=== PATIENT | male | born 1970 | race Caucasian/White ===

== ENCOUNTER 2016-11-09 14:41 | Inpatient (IN) | payer OTHER, MEDICAID ==
[~2016-11-09] VITALS: Ht 160 cm; Wt 63.5 kg
[2016-11-09 14:43] VITALS: BP 140/80
--- NOTE | 2016-11-09 14:44 | NUR ---
PT PLACED IN BED 1 BY EMS.
[2016-11-09 14:50] VITALS: BP 145/93
--- NOTE | 2016-11-09 14:50 | NUR ---
BIBA FOR SOB AND ABD DISTENTION FROM [facility]. PATIENT PRESENTS TO ED ON A VENT BY [facility], PLACED ON VENT BY PRINCIPLE SOFTWARE ENGINEER ON THE FOLLOWING SETTINGS ORGERED AC/VC RR 12, VT 400 CC, FI02 50%, PEEP +5, SUCTIONED VIA TRACH MODERATE AMOUNT OF WHITE THICK FOAMY SECRETIONS VIA INLINE SUCTION CATHETER; SKIN IS PINK/WARM/DRY; LUNGS BL UPPER EXPIRATORY WHEEZE WITH DIMINISHED BL LOWER LOBES; HR EVEN AND REGULAR; PT NONVERBAL HAS A TRACH, NO NOTICEABLE PAIN DISCOMFORT; VSS; PATIENT POSITIONED FOR COMFORT; HOB ELEVATED; BEDRAILS UP X2; BED DOWN. ER MD MADE AWARE OF PT STATUS.
--- NOTE | 2016-11-09 14:50 | NUR ---
PT BROUGHT TO ED FOR SOB ON VENT, PLACED PT ON CARESCAPE VENT SETTINGS AC12 VT 400 PEEP 5 FIO2 50% ALARMS ON AND FUNCTIONING PROPERLY, AMBU BAG AT SIDE OF VENTILATOR AND VENTILATOR IS PLUGGED INTO RED OUTLET, SXN PT FOR C&S MODERATE AMT OF THIN PINK SECRETIONS B\S ARE RHONCHI BILATERALLY, PT IS TRACH WITH PORTEX 7 AND SKIN INTEGRITY IS INTACT
[2016-11-09] MEDS ORDERED: CARDIZEM GT (14:55)
[2016-11-09] MEDS ORDERED: REGLAN1 MG/ML GT (14:55)
[2016-11-09] MEDS ORDERED: FOLIC ACID800 MCG GT (14:55)
[2016-11-09] MEDS ORDERED: PROBIOTIC1 EACH GT (14:55)
[2016-11-09] MEDS ORDERED: SIMETHICONE GT (14:55)
[2016-11-09] MEDS ORDERED: ROBINUL1 MG GT (14:55)
--- NOTE | 2016-11-09 15:19 | NUR ---
Patient being evaluated by physician at bedside.
--- NOTE | 2016-11-09 15:35 | NUR ---
X-Ray at bedside.
--- NOTE | 2016-11-09 15:52 | NUR ---
VENTILATED PT OFF THE UNIT VENTILATED WITH AMBU BAG BY MARIAJOSE, ACCOMPANIED BY BENIGNO ESPANA, AND COMPUTER CLERK VIA SRINIVASA.
--- NOTE | 2016-11-09 16:18 | NUR ---
ABG RESULTS REPORTED TO DR GALINDO DECREASE FIO2 TO 28
--- NOTE | 2016-11-09 17:05 | NUR ---
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 VSS.ALL MONITORS PLACED IN. SAFETY PRECAUTION INSTITUTED.WILL CONTINUE TO MONITOR PT.
[2016-11-09 17:06] VITALS: BP 142/94
--- NOTE | 2016-11-09 17:06 | NUR ---
VENT CHECK, NO SXN REQUIRED AT THIS TIME, AIRWAY IS PATENT AND PT IS RESTING
--- NOTE | 2016-11-09 17:21 | NUR ---
PT COUGHING, HIGH PRESSURE VENT ALARM, PT HYPER OXYGENATED, INLINE SUCTION THROUGH TRACH MODERATE YELLOW SECRETION. CURRENT VENT SETTINGS AC MODE, RATE 12, VT 400CC, FIO2 28%,PEEP +5, O2 SAT 99% POST SUCTION.PT RESRING COMFORTABLY.NO ACUTE RESPIRATORY DISTRESS NOTED. WILL CONTINUE TO MONITOR PT.
[2016-11-09] MEDS ORDERED: AZITHROMYCIN 500 MG in DEXTROSE 5% 250 ML IV ONE (17:25)
[2016-11-09] MEDS ORDERED: cefTRIAXone 1,000 MG VIAL ONE (17:30)
[2016-11-09] MEDS ORDERED: AZITHROMYCIN 500 MG INJ VIAL IV ONE (17:31)
--- NOTE | 2016-11-09 18:00 | NUR ---
HYPEROXYGENATED, USING STERILE TECHNIQUE SUCTIONED THROUGH TRACH VIA INLINE SUCTION MODERATE AMOUNT OF THICK YELLOW SECRETIONS, MODERATE AMOUNT OF WHITE FOAMY SECRETIONS ORALLY. VSS, O2 SAT REMAINS 98% WITH 28%FIO2.
[2016-11-09] MEDS ORDERED: ALBUTEROL SULFATE/IPRATROPIU 3 ML SOL IH PRN (18:25)
[2016-11-09] MEDS ORDERED: ALBUTEROL 0.083% 2.5 MG/3 ML NEBU INH PRN ×2 (18:25)
[2016-11-09] MEDS ORDERED: HYDROcodone/APAP 5/325 MG 1 TAB TAB PO PRN (18:25)
[2016-11-09] MEDS ORDERED: ONDANSETRON 4 MG/2 ML VIAL IVP PRN (18:25)
[2016-11-09] MEDS ORDERED: ACETAMINOPHEN 325 MG TAB PO PRN (18:25)
--- NOTE | 2016-11-09 18:45 | NUR ---
ATTEMPTED TO CALL TELE FOR REPORT, UNABLE TO ACCEPT REPORT AT THIS TIME, WILL CALL BACK LATER
[2016-11-09] MEDS ORDERED: ALBUTEROL 0.083% 2.5 MG/3 ML NEBU INH SCH ×2 (19:00)
--- NOTE | 2016-11-09 19:25 | NUR ---
REPORT GIVEN TO BENIGNO NEWSOME
[2016-11-09] MEDS: NACL 0.9% 1,000 ML IV SCH (19:30)
--- NOTE | 2016-11-09 19:30 | NUR ---
REPORT GIVEN TO BENIGNO HERNDON
--- NOTE | 2016-11-09 19:45 | NUR ---
Patient will be admitted to care of DR HENDRICKSON. Admited to TELE. Will go to room 109B. Belongings list completed. Report to BENIGNO NEWSOME.
[2016-11-09 19:50] VITALS: BP 133/94
--- NOTE | 2016-11-09 19:50 | NUR ---
PATIENT TRANSFERRED FROM ER VIA GURNEY. PATIENT IS A 46-YEAR-OLD, MALE, DIAGNOSIS: PNEUMONIA, ABDOMINAL DISTENTION, AND BL HYDRONEPHROSIS. INITIAL ASSESSMENT AND BODY CHECK DONE. PATIENT IS NON-VERBAL, [id number], IV ACCESS TO RIGHT ARM 20G AND LEFT HAND 22G, BOTH PORTS PATENT. REDNESS TO SACRAL/BUTTOCKS AREA, ABDOMEN DISTENDED. G-TUBE IN PLACE. PATIENT ON VENT SETTING AC, RR 12, FIO2 28%, TV 400, AND PEEP 5. PATIENT TOLERATING WELL. DISCUSSED PLAN OF CARE, MEDICATION REGIMENT, AND PAIN MANAGEMENT WITH PATIENT. PLACED PATIENT ON SAFETY/FALL/PRESSURE ULCER/ASPIRATION/SEIZURE PRECAUTIONS. CALL LIGHT LEFT WITHIN REACH, WILL CONTINUE TO MONITOR.
[2016-11-09] MEDS: ALBUTEROL SULFATE/IPRATROPIU 3 ML SOL IH SCH (20:41)
[2016-11-09] MEDS: BUDESONIDE 0.5 MG/2 ML NEBU INH SCH (20:45)
--- NOTE | 2016-11-09 22:05 | NUR ---
PATIENT IN BED, RESTING. EASILY AROUSABLE TO LIGHT PAIN, OPENS EYES SPONTANEOUSLY. PATIENT TOLERATING SAME VENT SETTINGS WELL. NO RESPIRATORY DISTRESS, SOB, OR DISCOMFORT. CALL LIGHT LEFT WITHIN REACH, WILL CONTINUE TO MONITOR.
[2016-11-10] VITALS: BP 139/91
--- NOTE | 2016-11-10 | NUR ---
ORAL CARE DONE AT THIS TIME, AND INLINE SUCTIONING DONE TO TRACH. MINIMAL AMOUNT OF THICK WHITE TO GREENISH SPUTUM SUCTIONED. PATIENT TOLERATED ORAL CARE WELL. CALL LIGHT LEFT WITHIN REACH, WILL CONTINUE TO MONITOR.
[2016-11-10] MEDS: ALBUTEROL SULFATE/IPRATROPIU 3 ML SOL IH SCH ×5 (00:10→19:28)
[2016-11-10] MEDS ORDERED: PIPERACILLIN/TAZOBACTAM 2.25 GM VIAL IV ONE ×2 (00:20→05:05)
[2016-11-10] MEDS: PIPERACILLIN/TAZOBACTAM 2.25 GM in DEXTROSE 5% 50 ML IV SCH ×2 (00:24→05:09)
--- NOTE | 2016-11-10 00:55 | NUR ---
PATIENT IN BED, SLEEPING. NO RESPIRATORY DISTRESS, SOB, OR DISCOMFORT. CALL LIGHT LEFT WITHIN REACH, WILL CONTINUE TO MONITOR.
[2016-11-10] MEDS: HYDRAGUARD CREAM TP SCH ×3 (01:15→23:44)
--- NOTE | 2016-11-10 03:02 | NUR ---
PATIENT ASLEEP. EASILY AROUSABLE TO LIGHT PAIN. NO RESPIRATORY DISTRESS, SOB, OR DISCOMFORT. NO INDICATIONS FOR IN-LINE SUCTIONING AT THIS TIME. CALL LIGHT LEFT WITHIN REACH, WILL CONTINUE TO MONITOR.
[2016-11-10 04:00] VITALS: BP 137/89
--- NOTE | 2016-11-10 04:04 | NUR ---
ORAL CARE PROVIDED TO PATIENT AT THIS TIME, NO INDICATIONS FOR IN LINE SUCTIONING. PATIENT TOLERATED WELL. CALL LIGHT LEFT WITHIN REACH, WILL CONTINUE TO MONITOR.
--- NOTE | 2016-11-10 04:56 | NUR ---
PT ASLEEP, SX MOD YELLOW THICK SECRETION, CHANGED HME, NO CHANGES IN VENT SETTINGS OR PT STATUS..
--- NOTE | 2016-11-10 06:05 | NUR ---
PATIENT IN BED, RESTING. EYES SPONTANEOUSLY OPEN, IN LINE SUCTION DONE AT THIS TIME. MODERATE THICK YELLOW SECRETIONS. NO RESPIRATORY DISTRESS, SOB, OR DISCOMFORT. CALL LIGHT LEFT WITHIN REACH, WILL CONTINUE TO MONITOR.
[2016-11-10] MEDS: NACL 0.9% 1,000 ML IV SCH ×2 (06:54→16:45)
[2016-11-10] MEDS: BUDESONIDE 0.5 MG/2 ML NEBU INH SCH ×2 (06:56→19:28)
--- NOTE | 2016-11-10 07:07 | NUR ---
REPORT GIVEN TO DAY NURSE, VICTOR MANUEL (ORIENTEE). PATIENT RESTING IN BED, STABLE. NO RESPIRATORY DISTRESS, SOB, OR DISCOMFORT. ALL NEEDS ATTENDED TO DURING SHIFT, CALL LIGHT LEFT WITHIN REACH.
--- NOTE | 2016-11-10 07:10 | NUR ---
RECEIVED PT FROM TENZIN Castillo RN AWAKE AND LYING ON BED. INITIAL ASSESSMENT DONE. PT NON VERBAL, WITH TRACH TO VENT, IV ACCESS TO RIGHT ARM 20G INFUSING FLUIDS WELL, AND LEFT HAND 22G PATENT AND INTACT. ABDOMINAL DISTENTION NOTED, WITH GTUBE INTACT. REDNESS NOTED AROUND GTUBE AREA. VENT SETTING AC, RR 12, FIO2 28%, TV 400, AND PEEP 5, TOLERATED WELL. NO S/S OF RESPIRATORY DISTRESS OR DISCOMFORT. SAFETY, FALL, SEIZURE, ASPIRATION PRECAUTIONS ENFORCED. CALL LIGHT WITHIN REACH, WILL CONTINUE TO MONITOR.
[2016-11-10 08:00] VITALS: BP 133/94
--- NOTE | 2016-11-10 08:37 | NUR ---
RECIVED PT ON VENT WITH SETTINGS CHARTED BREATH SOUNDS PRESENT BILAT WITH EXP WHEEZES SXN PT WITH MIN AMT OFF WHITE SECS
--- NOTE | 2016-11-10 08:57 | NUR ---
PATIENT HAS BEEN SCREENED AND CATEGORIZED HIGH NUTRITION RISK. PATIENT WILL BE SEEN WITHIN 1-2 DAYS OF ADMISSION. 11/10/16-11/11/[address]
[2016-11-10] MEDS ORDERED: DOCUSATE SODIUM 100 MG GELCAP PO SCH (09:00)
--- NOTE | 2016-11-10 09:09 | NUR ---
CONTACTED PT LACQUER SPRAY BOOTH OPERATOR ELSY BRADY AT [phone] AND LEFT A MESSAGE TO CALL BACK AT [phone]
[2016-11-10] MEDS ORDERED: ACETAMINOPHEN 325 MG TAB GT PRN (09:31)
[2016-11-10] MEDS ORDERED: DOCUSATE 100 MG/10 ML UDC GT SCH (10:00)
[2016-11-10] MEDS ORDERED: SODIUM PHOSPHATE 118 ML ENEM RC SCH (10:00)
[2016-11-10] MEDS ORDERED: NACL 0.9% 500 ML IV SCH (10:15)
--- NOTE | 2016-11-10 10:40 | NUR ---
INFANTE CATHETER INSERTED USING ASEPTIC TECHNIQUE, DRAINED 600ML OF CLEAR, YELLOW URINE. FLEET ENEMA AND DUE MEDS GIVEN, PT TOLERATED WELL. KEPT CLEAN AND DRY. WILL CONTINUE TO MONITOR.
--- NOTE | 2016-11-10 11:00 | NUR ---
WOUND CARE EVALUATION NOTES: REASON FOR EVALUATION: LOW ELBA, SACRAL REDNESS COMPLETE SKIN ASSESSMENT DONE ON THIS 44 Y/O MALE FROM [facility] TO [facility] WITH INITIAL DIAGNOSIS OF PNA, ABDOMINAL DISTENSION AND BILATERAL HYDRONEPHROSIS. PAST MEDICAL HISTORY INCLUDE SEIZURES, MRCP, ANEMIA, DYSPHAGIA, CHRONIC RESPIRATORY FAILURE, AND CEREBRAL PALSY. ALL ABOVE INFORMATION WAS OBTAINED FROM THE ADMISSION H&P. LABS ARE WBC 12.6, H/H 8.4/26.0, GLUCOSE 87, ALBUMIN 2.2. CURRENT MEDS INCLUDE TYLENOL, NORCO, ZOSYN, AND ROCEPHIN. PATIENT IS AWAKE, EYES OPEN, UNABLE TO RESPOND TO NAME. HAS TRACH TO VENT. G-TUBE TO LUQ, REDNESS TO INSERTION SITE. HAS INFANTE TO CLEAR YELLOW URINE IN MODERATE AMOUNT. SKIN WARM TO TOUCH HAS SCARRING TO THE LOWER BACK AND LEFT ABDOMINAL. TOENAILS NORMAL. EDEMA TO BUE AND BLE PITTING +2. FEW HAIR GROWTH AND +2 BILATERAL PEDAL PULSES. BUE AND BLE CONTRACTED. NEEDS MAX ASSISTANCE IN TURNING. INCONTINENT TO BOWEL AND URINE. INITIAL PLAN OF CARE AND PRESSURE PREVENTIVE MEASURES DISCUSSED, UNABLE TO VERBALIZE UNDERSTANDING. WILL REINFORCE TEACHING. INTEGUMENTARY: LUQ - G TUBE SITE - 100% PINK, PW WHITE MACERATION SACRALCOCCYX TO PERIAREA - BLANCHABLE REDNESS AND MOIST RECOMMENDATIONS: -CLEANSE G TUBE SITE WITH MILD SOAP AND WATER, PAT DRY, PAINT WITH SKIN PREP WIPES, COVER WITH CLEAN GAUZE. -SACRALCOCCYX TO PERIAREA: CLEANSE WITH MILD SOAP AND WATER, PAT DRY, APPLY HYDRAGUARD BIDWC AND PRN WITH SOILING. LEAVE OPEN TO AIR -TURN AND REPOSITION PATIENT Q2H TO LEFT AND RIGHT SIDE ONLY TO OFFLOAD SACRALCOCCYX -OFFLOAD BILATERAL HEELS BY PLACING PILLOWS UNDER CALVES AT ALL TIMES, UNLESS OTHERWISE CONTRAINDICATED. -KEEP SKIN CLEAN AND DRY AT ALL TIMES. RECOMMENDATIONS DISCUSSED WITH PRIMARY RN WILL FOLLOW UP PATIENT Q 7 DAYS AND PRN. PLEASE CONTACT C FOR ANY CONCERNS, QUESTIONS AND CHANGES IN WOUND CONDITION.
[2016-11-10] MEDS ORDERED: ACETAMINOPHEN 650 MG/20.3 ML UDC GT PRN (11:15)
[2016-11-10 12:00] VITALS: BP 142/94
--- NOTE | 2016-11-10 12:00 | NUR ---
PT LYING ON BED AWAKE, NO S/S OF RESPIRATORY DISTRESS OR DISCOMFORT. DUE MEDS GIVEN, TOLERATED WELL. KEPT CLEAN AND DRY. WILL CONTINUE TO MONITOR.
[2016-11-10] MEDS: SIMETHICONE 40 MG/0.6 ML GT SCH ×3 (12:10→21:15)
[2016-11-10] MEDS: DILTIAZEM 300 MG GT SCH ×3 (12:10→23:44)
[2016-11-10] MEDS: PIPER/TAZO 2.25GM/D5W PREMIX 50 ML IV SCH ×2 (12:11→21:15)
--- NOTE | 2016-11-10 12:27 | NUR ---
11/10/16 RD INITIAL ASSESSMENT COMPLETED PLEASE REFER TO NUTRITION ASSESSMENT UNDER CARE ACTIVITY FOR ESTIMATED NUTRITIONAL NEEDS. RD RECOMMENDATIONS: 1. CONTINUE NPO MEDICALLY APPROPRIATE 2. WHEN APPROPRIATE CONSIDER TUBE FEEDING NUTREN PULMONARY AT 50 ML/HR --THIS WILL PROVIDE 1200 ML TOTAL VOLUME, 1800 KCAL, 82 GM PROTEIN TO MEET 100% OF ESTIMATED KCAL AND PROTEIN NEEDS 3. PT WITH INCREASED KCAL AND PROTEIN NEEDS D/T RESPIRATORY FAILURE, VENT 4. RD WILL F/U 2-3 DAYS; HIGH RISK. ОЛЕГ PANDEY RD
--- NOTE | 2016-11-10 14:00 | NUR ---
PT ASLEEP LYING ON BED BUT EASILY AWAKEN, NO S/S OF RESPIRATORY DISTRESS. KEPT CLEAN AND DRY, TURNED AND REPOSITIONED. ALL NEEDS MET AT THIS TIME. CALL LIGHT WITHIN REACH, WILL CONTINUE TO MONITOR.
[2016-11-10 16:00] VITALS: BP 151/93
--- NOTE | 2016-11-10 17:10 | NUR ---
CONTINUED TO MONITOR PT ON VENT WITH SETTINGS CHARTED SXN PT WITH MIN AMT OFF WHITE SECS BREATH SOUNDS PRESENT BILAT WITH COARSE BREATH SOUNDS VENT PLUGGE INTO RED OUTLET AMBU BAG AT BEDSIDE TRACH CARE DONE
--- NOTE | 2016-11-10 17:15 | NUR ---
DUE MED GIVEN, PT TOLERATED WELL. NO S/S OF DISTRESS, KEPT CLEAN AND DRY. CALL LIGHT WITHIN REACH, WILL CONTINUE TO MONITOR.
--- NOTE | 2016-11-10 19:38 | NUR ---
ENDORSED PT TO CHARGE NURSE, TORRIE PELAEZ. PT IS STABLE AT THIS TIME.
[2016-11-10 20:00] VITALS: BP 138/92
--- NOTE | 2016-11-10 20:15 | NUR ---
RECEIVED REPORT FROM CHARGE NURSE, JANETH, FOR CONTINUITY OF CARE. PATIENT RESTING IN BED. PATIENT ON [id number]; AC 12, FIO2 21%, TV 400, AND PEEP 5. NO RESPIRATORY DISTRESS, SOB, OR DISCOMFORT. INITIAL ASSESSMENT AND BODY CHECK DONE. PATIENT IS NON-VERBAL, APHASIC, IV ACCESS TO RIGHT ARM 20G AND LEFT HAND 22G, BOTH PORTS PATENT. PATIENT HAS REDNESS TO SACRAL/BUTTOCKS AREA AND GT SITE. G-TUBE IN PLACE, F/C IN PLACE DRAINING CLEAR YELLOW. DISCUSSED PLAN OF CARE, MEDICATION REGIMENT, AND PAIN MANAGEMENT WITH PATIENT. PLACED PATIENT ON SAFETY/FALL/PRESSURE ULCER/SEIZURE/ASPIRATION PRECAUTIONS. CALL LIGHT LEFT WITHIN REACH, WILL CONTINUE TO MONITOR.
[2016-11-10] MEDS: LACTULOSE 20 GM/30 ML UDC GT SCH (21:15)
[2016-11-10] MEDS: METOCLOPRAMIDE 10 MG/10 ML SYRP UDC GT SCH (21:16)
[2016-11-10] MEDS: SACCHAROMYCES 250 MG CAP PO SCH (21:16)
--- NOTE | 2016-11-10 21:30 | NUR ---
ORAL CARE PROVIDED TO PATIENT. PATIENT TOLERATED WELL. IN-LINE SUCTIONING OF THICK CREAMY SECRETIONS. CALL LIGHT LEFT WITHIN REACH, WILL CONTINUE TO MONITOR.
--- NOTE | 2016-11-10 22:03 | NUR ---
PATIENT IN BED, RESTING. EYES SPONTANEOUSLY OPEN. NO INDICATIONS FOR IN-LINE SUCTIONING AT THIS TIME. CALL LIGHT LEFT WITHIN REACH, WILL CONTINUE TO MONITOR.
[2016-11-11] VITALS: BP 133/86
--- NOTE | 2016-11-11 00:16 | NUR ---
PATIENT PROVIDED WITH ORAL CARE. PATIENT TOLERATED WELL. NO INDICATIONS FOR IN-LINE SUCTIONING AT THIS TIME. WILL CONTINUE TO MONITOR.
[2016-11-11] MEDS: NACL 0.9% 1,000 ML IV SCH ×4 (00:20→20:44)
--- NOTE | 2016-11-11 00:54 | NUR ---
PATIENT IN BED, SLEEPING. NO RESPIRATORY DISTRESS, SOB, OR DISCOMFORT. CALL LIGHT LEFT WITHIN REACH, WILL CONTINUE TO MONITOR.
[2016-11-11] MEDS: ALBUTEROL SULFATE/IPRATROPIU 3 ML SOL IH SCH ×4 (01:22→19:12)
--- NOTE | 2016-11-11 03:08 | NUR ---
PATIENT ASLEEP. NO INDICATIONS OF IN-LINE SUCTIONING AT THIS TIME. CALL LIGHT LEFT WITHIN REACH, WILL CONTINUE TO MONITOR.
[2016-11-11 04:00] VITALS: BP 134/81
--- NOTE | 2016-11-11 04:10 | NUR ---
ORAL CARE PROVIDED TO PATIENT ALONG WITH IN-LINE SUCTIONING OF THICK CREAMY WHITE SECRETIONS. PATIENT TOLERATED WELL. CALL LIGHT LEFT WITHIN REACH, WILL CONTINUE TO MONITOR.
[2016-11-11] MEDS: PIPER/TAZO 2.25GM/D5W PREMIX 50 ML IV SCH ×2 (05:18→12:29)
[2016-11-11] MEDS: DILTIAZEM 300 MG GT SCH ×4 (05:18→23:47)
--- NOTE | 2016-11-11 06:01 | NUR ---
PATIENT SLEEPING. NO RESPIRATORY DISTRESS, SOB, OR DISCOMFORT. CALL LIGHT LEFT WITHIN REACH, WILL CONTINUE TO MONITOR.
--- NOTE | 2016-11-11 07:09 | NUR ---
REPORT GIVEN TO DAY NURSE, MAXIM. PATIENT RESTING IN BED, STABLE. NO RESPIRATORY DISTRESS, SOB, OR DISCOMFORT. ALL NEEDS ATTENDED TO DURING SHIFT, CALL LIGHT LEFT WITHIN REACH.
--- NOTE | 2016-11-11 07:30 | NUR ---
REPORT RECEIVED AT BEDSIDE FROM TENZIN MOTLEY RN . PATIENT IN BED, AWAKE , NON VERBAL , ABLE TO OPEN HIS EYES . NO S/SX OF PAIN , NO RESP/DISTRESS NOTED. WITH 02 VIA TRACH CONNECTED TO VENT. WITH IV FLUIDS INFUSING WELL. HAS GT , CLAMPED , RESIDUAL 100 . HAS REDNESS AROUND GT SITE. WITH INFANTE CATH DRAINING WELL YELLOW CLOUDY . PATIENT HAS CONTRACTED UPPER/LOWER EXTREMITIES . NO S/SX OF SEIZURES NOTED.WILL CONTINUE MONITORING .
[2016-11-11 08:00] VITALS: BP 149/100
[2016-11-11] MEDS: BUDESONIDE 0.5 MG/2 ML NEBU INH SCH ×2 (08:15→19:12)
--- NOTE | 2016-11-11 08:23 | NUR ---
RECEIVED TRACH PT ON VENT WITH PORTEX 7 TRACH. VENT SETTINGS AC 12, VT 400, PEEP 5 AND FIO2 21%. PT SUCTIONED OBTAINED MODERATE AMOUNT OF THICK YELLOW SECRETIONS. AIRWAY IS PATENT, TRACH SECURE. PT NOT SOB AND NOT IN RESPIRATORY DISTRESS AT THIS TIME. VENT ALARMS ARE ON AND FUNCTIONING, VENT IS PLUGGED INTO RED OUTLET. AMBU BAG IS PRESENT AT BEDSIDE. WILL CONTINUE TO MONITOR.
--- NOTE | 2016-11-11 08:40 | NUR ---
MADE AWARE OF PEAK PRESSURES. NO CHANGES REQUESTED AT THIS TIME.
--- NOTE | 2016-11-11 08:42 | NUR ---
DR ZAMUDIO CAME TO SEE HIM , ORDERS GIVEN.
--- NOTE | 2016-11-11 08:50 | NUR ---
INTERMITTENT SUCTION CONNECTED TO GT , SOME DRAINAGE NOTED , DARK GREEN COLOR . ABDOMEN DISTENDED .
[2016-11-11] MEDS: LACTULOSE 20 GM/30 ML UDC GT SCH ×2 (09:44→20:42)
[2016-11-11] MEDS: DOCUSATE 100 MG/10 ML UDC GT SCH (09:44)
[2016-11-11] MEDS: SACCHAROMYCES 250 MG CAP PO SCH ×2 (09:44→20:43)
[2016-11-11] MEDS: METOCLOPRAMIDE 10 MG/10 ML SYRP UDC GT SCH (09:44)
--- NOTE | 2016-11-11 09:53 | NUR ---
PT SUCTIONED OBTAINED SMALL AMOUNT OF THICK YELLOW SECRETIONS. AIRWAY IS PATENT, TRACH SECURE. PT NOT SOB NOT IN RESPIRATORY DISTRESS . WILL CONTINUE TO MONITOR.
[2016-11-11] MEDS: SIMETHICONE 40 MG/0.6 ML GT SCH ×4 (10:14→20:42)
[2016-11-11 12:00] VITALS: BP 141/89
--- NOTE | 2016-11-11 13:22 | NUR ---
FIO2 INCREASED TO 24% DUE TO DESATURATION. PT SUCTIONED OBTAINED SMALL AMOUNT OF THICK PALE YELLOW SECRETIONS,AIRWAY IS PATENT. TRACH SECURE. WILL CONTINUE TO MONITOR.
[2016-11-11] MEDS: HYDRAGUARD CREAM TP SCH (14:00)
[2016-11-11] MEDS ORDERED: MORPHINE SULFATE 2 MG/ML SYR IVP PRN ×2 (15:40→19:40)
[2016-11-11 16:00] VITALS: BP 143/83
--- NOTE | 2016-11-11 16:42 | NUR ---
1540 CALL PLACED TO [facility] AT [phone] AND SPOKE WITH GALDINO WHO STATED THAT THEY ARE ON SATURATION AT THIS TIME AND NOT TAKING ANY REFERRALS. CALL PLACED TO [facility] AT [phone] AND PER VOICE MESSAGE INFORMATION FAXED TO [phone] AND PER VOICE MESSAGE INFORMATION WILL BE REVIEWED. 1600 CALL PLACED TO [facility] [phone] AND SPOKE WITH [employer]GG GILMANGLAZIER [employer] FURNITURE WHO STATED THEY ARE SATURATED AND NO ICU BEDS AVAILABLE.
--- NOTE | 2016-11-11 16:56 | NUR ---
PT REMAINS ON DOCUMENTED SETTINGS. PT IS NOT SOB AND NOT IN RESPIRATORY DISTRESS AT THIS TIME. VENT ALARMS REMAIN ON AND FUNCTIONING.
--- NOTE | 2016-11-11 18:00 | NUR ---
Reason For Evaluation: <Transfer to higher level care of care> Comments: <Patient requires transfer to higher level of care as patient has a, calcified left obstructed ureteral stent with large right obstructing, ureteral stones in the setting of bilateral hydronephrosis and sepsis., Patient requires tertiary care center and possibly complex percutaneous, approaches for treatment of his bilateral renal stones. In addition, our, radiologist states patient requires an interventional radiology suite, (with rotatin fluoroscopic arm) with anaesthethia consult due to, difficulty positioning patient for bilateral nephrostomy tube placement as, patient is contracted in all extremities with high respiratory pressures, 2/[address] Hernandez, Urologist and Dr. Sewell,, Radiologist both recommend transfer to higher level of care.>.CUSTOMS CONSULTANT WORKING IN FIND PLACE TO TRANSFER. LARA BROWNLEE/CUSTOMS CONSULTANT CALL US AND MADE QUESTIONS ABOUT PATIENT CONDITION.
--- NOTE | 2016-11-11 18:38 | NUR ---
ABDOMINAL US IN PROGRESS.
--- NOTE | 2016-11-11 19:13 | NUR ---
PT RECEIVED FROM [facility] ON NOTED VENT SETTINGS. PT AWAKE, HAS A #7 PORTEX TR[address] SECURE IN PLACE. BS DIMINISHED/COARSE, HHN TX GIVEN INLINE. PT LAVAGED AND SUCTIONED SMALL AMT THICK CREAMY SECRETIONS. NO ADVERSE EFFECTS NOTED. VENT ALARMS ON AND AUDIBLE. VENT PLUGGED INTO RED ELECTRICAL OUTLET. AMBU BAG AT [facility].
[2016-11-11] MEDS ORDERED: METOCLOPRAMIDE 10 MG/2 ML INJ VIAL IVP PRN (19:25)
--- NOTE | 2016-11-11 19:30 | NUR ---
REPORT GIVEN AT BEDSIDE TO BENIGNO DODSON FOR CONTINUITY OF CARE. PATIENT IN STABLE CONDITION , RT AT BEDSIDE .
--- NOTE | 2016-11-11 19:30 | NUR ---
RECEIVED REPORT FROM MAXIM RN AT BEDSIDE. PT IS APHASIC. ONLY OPEN HIS EYES. INITIAL ASSESSMENT DONE. NO S/S OF RESPIRATORY DISTRESS OR SOB NOTED. ON TRACH TO VENT. PT HAS G-TUBE BUT FEEDING IS ON HOLD EXCEPT MEDS. ATTACHED TO INTERMITTENT SUCTION. PLACEMENT AND PATENCY ARE CONFIRMED. ON INFANTE CATHETER BY GRAVITY. PLAN OF CARE REVIEWED TO PT BUT UNABLE TO COMPREHEND. CALL LIGHT WITHIN REACH. WILL CONTINUE TO MONITOR.
[2016-11-11] MEDS ORDERED: MAG SULF 2000 MG/WATER PREMIX 100 ML IV SCH (19:40)
[2016-11-11 20:00] VITALS: BP 145/81
[2016-11-11] MEDS ORDERED: cefTRIAXone 1,000 MG VIAL ONE (20:23)
--- NOTE | 2016-11-11 21:39 | NUR ---
VENT CHECKED. ECHOCARDIOGRAPH TECH IN WITH PT. NO DISTRESS NOTED.
--- NOTE | 2016-11-11 23:48 | NUR ---
VENT CHECKED. PT AWAKE. NO DISTRESS NOTED. PT SUCTIONED SM AMT THICK CREAMY SECRETIONS. NO ADVERSE EFFECTS NOTED.
[2016-11-12] VITALS: BP 138/79
--- NOTE | 2016-11-12 00:10 | NUR ---
PT IS SLEEPING RIGHT NOW BUT AROUSABLE TO SLIGHT PAIN. NO S/S OF ANY DISCOMFORT AT THIS TIME. ALL NEEDS ARE ATTENDED. CALL LIGHT WITHIN REACH. WILL CONTINUE TO MONITOR.
--- NOTE | 2016-11-12 00:20 | NUR ---
PT IS SLEEPING RIGHT NOW BUT EASILY AROUSABLE. NO S/S OF ANY DISCOMFORT AT THIS TIME. ALL NEEDS ARE ATTENDED. CALL LIGHT WITHIN REACH. WILL CONTINUE TO MONITOR. Addendum: 11/12/16 at 0048 by Waqas Sherman RN WRONG PATIENT
[2016-11-12] MEDS: ALBUTEROL SULFATE/IPRATROPIU 3 ML SOL IH SCH ×4 (02:08→19:04)
--- NOTE | 2016-11-12 02:08 | NUR ---
VENT CHECKED. PT ASLEEP, BREATH SOUNDS COARSE BILATERALLY,HHN TX GIVEN INLINE. PT LAVAGED AND SUCTIONED SM AMT THICK PALE YELLOW SECRETIONS. NO ADVERSE EFFECTS NOTED.
[2016-11-12] MEDS: HYDRAGUARD CREAM TP SCH ×2 (02:37→12:24)
--- NOTE | 2016-11-12 03:49 | NUR ---
VENT CHECKED. HME AND TRACH GAUZE CHANGED. NO ADVERSE EFFECTS NOTED.
[2016-11-12 04:00] VITALS: BP 139/85
--- NOTE | 2016-11-12 04:00 | NUR ---
SPOKE TO NATA COLES FROM [facility] AND HE SAID THAT THEY'RE STILL EVALUATING THE PATIENT. INFORMED EDITH CHARGE NURSE. WILL CONTINUE TO MONITOR.
--- NOTE | 2016-11-12 05:00 | NUR ---
AM CARE RENDERED. BED LINEN CHANGED. REPOSITIONED PATIENT. KEPT CLEAN AND DRY. CALL LIGHT WITHIN REACH. WILL CONTINUE TO MONITOR.
[2016-11-12] MEDS: DILTIAZEM 300 MG GT SCH ×4 (05:41→23:18)
--- NOTE | 2016-11-12 05:46 | NUR ---
VENT CHECKED. PT ASLEEP, NO DISTRESS NOTED. PT LAVAGED AND SUCTIONED SM THICK PALE YELLOW SECRETIONS. NO ADVERSE EFFECTS NOTED.
[2016-11-12] MEDS: NACL 0.9% 1,000 ML IV SCH (06:00)
--- NOTE | 2016-11-12 06:48 | NUR ---
RECEIVED PT ON CARESCAPE ON A/C 12 VT 400 PEEP 5 FIO2 24 ALARMS ARE ON AND FUNCTIONAL BMV HOB PTS TRACH PORTEX 7 IS SECURE PTI NHF QUIET BS INSP WHEEZING I\L LAVAGE AND SX SM CREAMY I\L HHN GIVEN WITH 3 MG DUONEB FOLLOWED BY 0.5 MG PULMICORT VENT PLUGGED INTO RED OUTLET CONT. POX IN PLACE AT BEDSIDE
[2016-11-12] MEDS: BUDESONIDE 0.5 MG/2 ML NEBU INH SCH ×2 (07:05→19:04)
--- NOTE | 2016-11-12 07:27 | NUR ---
PT HAS NO S/S OF ANY DISCOMFORT. PLAN OF CARE ENDORSED TO OLGA RN AT BEDSIDE FOR CONTINUITY OF CARE.
--- NOTE | 2016-11-12 07:30 | NUR ---
RECEIVED REPORT FROM IVORY PELAEZ FOR CONTINUITY OF CARE. PATIENT , AWAKE OPEN HIS EYES NON-VERBAL , ON VENT NO S/S OF RESP DISTRESS NOTED . NO DISCOMFORT NOTED. BILATERAL UPPER AND LOWER EXTREMITIES CONTRACTED ,ABDOMEN DISTENDED G-TUBE INTERMITTENT SUCTION . F/C DRAIN CLEAR YELLOW URINE. IV SITE RT ARM GAUGE 20 INTACT AND PATENT , IVF INFUSING WELL. PLAN OF CARE DISCUSSED WITH THE PATIENT , VITALS STABLE WILL CONTINUE TO MONITOR.
[2016-11-12 08:04] VITALS: BP 130/79
--- NOTE | 2016-11-12 08:12 | NUR ---
VENT CHECK BS COARSE I\L LAVAGE AND SX SM CREAMY INCREASE PF TO 35
--- NOTE | 2016-11-12 09:00 | NUR ---
DUE MEDS GIVEN THROUGH G-TUBE , NO RESIDUAL ,TOLERATED WELL , MORNING CARE GIVEN AND REPOSITIONED.
[2016-11-12] MEDS: LACTULOSE 20 GM/30 ML UDC GT SCH ×2 (09:16→20:09)
[2016-11-12] MEDS: SACCHAROMYCES 250 MG CAP PO SCH (09:16)
[2016-11-12] MEDS: DOCUSATE 100 MG/10 ML UDC GT SCH (09:16)
[2016-11-12] MEDS: SIMETHICONE 40 MG/0.6 ML GT SCH ×4 (09:18→20:10)
--- NOTE | 2016-11-12 09:50 | NUR ---
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
[2016-11-12] MEDS: NACL 0.45% 1,000 ML IV SCH ×2 (10:11→19:56)
[2016-11-12] MEDS ORDERED: AMIKACIN PER PHARMACY MC PRN (10:20)
--- NOTE | 2016-11-12 11:10 | NUR ---
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
[2016-11-12 11:57] VITALS: BP 143/83
[2016-11-12] MEDS: AMIKACIN 500 MG in DEXTROSE 5% 100 ML IV SCH (12:23)
[2016-11-12] MEDS: NYSTATIN CRE 100 MU/GM 15 GM TUBE TP SCH ×2 (12:24→17:30)
--- NOTE | 2016-11-12 12:25 | NUR ---
DUE MEDS GIVEN THROUGH G-TUBE TOLERATED WELL . REPOSITIONED , NO BM YET . ABDOMEN DISTENDED , NO DISCOMFORT NOTED AT THIS TIME.
--- NOTE | 2016-11-12 13:31 | NUR ---
VENT CHECK BS COARSE I\L LAVAGE AND SX SM CREAMY I\L HHN GIVEN WITH 3 MG DUONEB
--- NOTE | 2016-11-12 14:00 | NUR ---
REPOSITIONED, PERINEAL CARE GIVEN NO BM , ABDOMEN DISTENDED G-TUBE TO LOW INTERM SUCTION ONLY 20 ML LIGHT GREENISH OUT PUT
--- NOTE | 2016-11-12 14:59 | NUR ---
VENT CHECK BS COARSE I\L LAVAGE AND SX SM CREAMY
[2016-11-12] MEDS ORDERED: METOCLOPRAMIDE 10 MG/2 ML INJ VIAL IVP ONE (15:10)
[2016-11-12] MEDS ORDERED: METOCLOPRAMIDE 10 MG/2 ML INJ VIAL IVP SCH (15:26)
--- NOTE | 2016-11-12 15:47 | NUR ---
11/12/16 RD FOLLOW UP COMPLETED PLEASE REFER TO NUTRITION PROGRESS NOTE UNDER CARE ACTIVITY FOR ESTIMATED NUTRITION NEEDS. RD RECOMMENDATIONS: 1. CONTINUE NPO MEDICALLY APPROPRIATE PER MD. 2. IF PT IS MEDICALLY APPROPRIATE TO BEING NUTRITION, CONSIDER NUTRITION SUPPORT BELOW. --CONSIDER NUTREN PULMONARY AT STARTING AT 10 ML/HR, INCREASE 10 ML Q12 ML/HR TOLERATED TO GOAL RATE OF 50 ML/HR. THIS WILL PROVIDE 1200 ML TOTAL VOLUME, 1800 KCAL, 82 GM PROTEIN TO MEET 100% OF PT ESTIMATED KCAL AND PROTEIN NEEDS. --NOTE PT PT WITH INCREASED KCAL AND PROTEIN NEEDS D/T RESPIRATORY FAILURE, VENT --IF TUBE FEEDING IS NOT MEDICALLY APPROPRIATE, CONSIDER TPN. IF SO, PLEASE CONSULT RD FOR RECOMMENDATIONS. 3. RD WILL F/U 2-3 DAYS; HIGH RISK. LEV FUCHS RD
--- NOTE | 2016-11-12 16:00 | NUR ---
REPOSITIONED , NO DISTRESS NOTED VITALS STABLE AT THIS TIME.
[2016-11-12 16:11] VITALS: BP 146/90
--- NOTE | 2016-11-12 16:56 | NUR ---
VENT CHECK BS COARSE I\L LAVAGE AND SX SM CREAMY CHANGE TRACH TIE GAUZE WITHOUT INCIDENT
--- NOTE | 2016-11-12 18:22 | NUR ---
SAFETY MAINTAINED , REPOSITIONED , RELAXED NO DISCOMFORT NOTED STABLE CONDITION AT THIS TIME.
--- NOTE | 2016-11-12 19:04 | NUR ---
PT RECEIVED FROM [facility] ON NOTED VENT SETTINGS. PT ASLEEP, HAS A #7 PORTEX TRACH SECURE IN PLACE. BS COARSE BILATERALLY, HHN INLINE TX GIVEN. PT LAVAGED AND SUCTIONED SMALL AMOUNT THICK CREAMY SECRETIONS. NO ADVERSE EFFECTS NOTED. VENT ALARMS ON AND AUDIBLE. VENT PLUGGED INTO RED ELECTRICAL OUTLET, AMBU BAG AT [facility].
--- NOTE | 2016-11-12 19:30 | NUR ---
RECEIVED REPORT FROM OLGA PELAEZ AT BEDSIDE. PT IS APHASIC. ONLY OPEN HIS EYES. INITIAL ASSESSMENT DONE. NO S/S OF RESPIRATORY DISTRESS OR SOB NOTED. ON TRACH TO VENT. PT HAS G-TUBE BUT FEEDING STILL ON HOLD EXCEPT MEDS. ATTACHED TO INTERMITTENT SUCTION. PLACEMENT AND PATENCY ARE CONFIRMED. ON INFANTE CATHETER BY GRAVITY. PLAN OF CARE REVIEWED TO PT BUT UNABLE TO COMPREHEND. CALL LIGHT WITHIN REACH. WILL CONTINUE TO MONITOR.
[2016-11-12 20:00] VITALS: BP 135/83
[2016-11-12] MEDS: SACCHAROMYCES 250 MG CAP GT SCH (20:09)
[2016-11-12] MEDS: METOCLOPRAMIDE 10 MG/10 ML SYRP UDC GT SCH (20:11)
--- NOTE | 2016-11-12 21:20 | NUR ---
VENT CHECKED. NO DISTRESS NOTED.
--- NOTE | 2016-11-12 23:17 | NUR ---
VENT CHECKED. PT LAVAGED AND SUCTIONED SMALL AMT THICK CREAMY SECRETIONS. NO ADVERSE EFFECTS NOTED.
[2016-11-13] VITALS: BP 131/78
[2016-11-13] MEDS: ALBUTEROL SULFATE/IPRATROPIU 3 ML SOL IH SCH ×4 (00:45→18:55)
--- NOTE | 2016-11-13 00:45 | NUR ---
VENT CHECKED. BREATH SOUNDS COARSE BILATERALLY, HHN INLINE TX GIVEN. PT SUCTIONED SMALL AMT THICK SECRETIONS. NO ADVERSE EFFECTS NOTED.
[2016-11-13] MEDS: HYDRAGUARD CREAM TP SCH ×2 (01:26→12:38)
--- NOTE | 2016-11-13 03:20 | NUR ---
VENT CHECKED. HME AND TRACH GAUZE CHANGED. NO ADVERSE EFFECTS NOTED.
[2016-11-13 04:00] VITALS: BP 129/85
--- NOTE | 2016-11-13 05:00 | NUR ---
AM CARE RENDERED. BED LINEN CHANGED. REPOSITIONED PATIENT. KEPT CLEAN AND DRY. CALL LIGHT WITHIN REACH. WILL CONTINUE TO MONITOR.
[2016-11-13] MEDS: DILTIAZEM 300 MG GT SCH ×4 (05:13→23:46)
[2016-11-13] MEDS: NACL 0.45% 1,000 ML IV SCH ×2 (05:14→16:27)
--- NOTE | 2016-11-13 05:49 | NUR ---
VENT CHECKED. PT LAVAGED AND SUCTIONED SM AMT CREAMY SECRETIONS. NO ADVERSE EFFECTS NOTED.
--- NOTE | 2016-11-13 07:25 | NUR ---
PT HAS NO S/S OF ANY DISCOMFORT. PLAN OF CARE ENDORSED TO KWABENA PELAEZ AT BEDSIDE FOR CONTINUITY OF CARE.
--- NOTE | 2016-11-13 07:26 | NUR ---
RECEIVED REPORT FROM NIGHT RN. PT RESTING IN BED. PT IS NONVERBAL. NO S/S OF ACUTE DISTRESS. FLACC-0. G-TUBE PATENT AND INTACT. IV SITES PATENT AND INTACT. INFANTE CATHETER PATENT AND INTACT. PT IS TRACH TO VENT. HOB ELEVATED. CALL LIGHT WITHIN REACH. WILL CONTINUE TO MONITOR.
--- NOTE | 2016-11-13 07:36 | NUR ---
RECEIVED PT ON [place] ON A/C 12 VT 400 PEE 5 FIO2 24 ALARMS ARE ON AND FINCTIONAL BMV HOB PTS TRACH PORTEX 8 IS SECURE PT IN HF QUIET BS INSP WHEEZE I\L LAVAGE AND SX SM CREAMY I\L HHN GIVEN WITH 3 MG DUONEB FOLLOWED BY 0.5 MG PULMICORT HHN I\L VENT PLUGGED INTO RED OUTLET Addendum: 11/13/16 at 0801 by Suri Weiss RT PORTEX 7
[2016-11-13] MEDS: BUDESONIDE 0.5 MG/2 ML NEBU INH SCH ×2 (07:45→18:55)
[2016-11-13 08:00] VITALS: BP 140/91
[2016-11-13] MEDS ORDERED: LORazepam 2 MG/ML VIAL IVP PRN (08:00)
--- NOTE | 2016-11-13 09:10 | NUR ---
VENT CHECK BS DIMINISHED
[2016-11-13] MEDS: LACTULOSE 20 GM/30 ML UDC GT SCH ×2 (09:41→21:26)
[2016-11-13] MEDS: SACCHAROMYCES 250 MG CAP GT SCH ×2 (09:42→21:27)
[2016-11-13] MEDS: DOCUSATE 100 MG/10 ML UDC GT SCH (09:42)
[2016-11-13] MEDS: METOCLOPRAMIDE 10 MG/10 ML SYRP UDC GT SCH ×2 (09:42→21:30)
[2016-11-13] MEDS: NYSTATIN CRE 100 MU/GM 15 GM TUBE TP SCH ×3 (09:43→16:36)
[2016-11-13] MEDS: SIMETHICONE 40 MG/0.6 ML GT SCH ×4 (09:43→21:49)
--- NOTE | 2016-11-13 09:43 | NUR ---
DR. GURROLA AT BEDSIDE. NO S/S OF ACUTE DISTRESS. FLACC-0. WILL FOLLOW UP WITH PLAN OF CARE.
--- NOTE | 2016-11-13 10:27 | NUR ---
PT RESTING IN BED. NO S/S OF ACUTE DISTRESS. FLACC-0. CALL LIGHT WITHIN REACH. WILL CONTINUE TO MONITOR.
--- NOTE | 2016-11-13 10:38 | NUR ---
VENT CHECK BS DIMINISHED
--- NOTE | 2016-11-13 10:40 | NUR ---
PT PLACED ON G-TUBE SUCTION. PT TOLERATING WELL.
--- NOTE | 2016-11-13 11:46 | NUR ---
PT RESTING IN BED. NO S/S OF ACUTE DISTRESS. FLACC-0. CALL LIGHT WITHIN REACH. WILL CONTINUE TO MONITOR.
[2016-11-13 12:00] VITALS: BP 109/65
[2016-11-13] MEDS: AMIKACIN 500 MG in DEXTROSE 5% 100 ML IV SCH (12:36)
--- NOTE | 2016-11-13 13:37 | NUR ---
VENT CHECK BS INSP WHEEZE I\KL HHN GIVEN WITH 3 MG DUONEB
--- NOTE | 2016-11-13 14:38 | NUR ---
PT RESTING IN BED. NO S/S OF ACUTE DISTRESS. FLACC-0. CALL LIGHT WITHIN REACH. SAFETY MEASURES ENSURED. WILL CONTINUE TO MONITOR.
--- NOTE | 2016-11-13 15:22 | NUR ---
VENT CHECK BS DIMINISHED
[2016-11-13 16:00] VITALS: BP 132/67
[2016-11-13] MEDS ORDERED: LEVOFLOXACIN 500 MG/D5W PREMIX 100 ML IV SCH (16:00)
--- NOTE | 2016-11-13 16:14 | NUR ---
PT RESTING IN BED. NO S/S OF ACUTE DISTRESS. PT REPOSITIONED. PT TOLERATED WELL. FLACC-0. CALL LIGHT WITHIN REACH. WILL CONTINUE TO MONITOR.
--- NOTE | 2016-11-13 18:58 | NUR ---
SPOKE WITH CHAD FROM [facility]. SHE STATES SHE IS WAITING FOR CASE MANAGEMENT TO CONTACT HER REGARDING CONNECTING DOCTORS FOR TRANSFER. HER NUMBER IS [phone].
--- NOTE | 2016-11-13 19:17 | NUR ---
ENDORSED PLAN OF CARE TO NIGHT RN. PT REMAINS IN STABLE CONDITION.
--- NOTE | 2016-11-13 19:18 | NUR ---
RECEIVED PT FROM KWABENA RN PT APHASIC DROWSY DOES NOT FOLLOW COMMANDS, CONTRACTED UPPER AND LOWER EXTREMITIES, HOB 35 DEGREE TRACH TO VENT SETTING TV 400 RR 12 , FIO2 24% not sob noted g tube patent abd very distended bowel sound diminished RESP THERAPY IS HERE AND GIVE BREATHING TS PT ON SBFT BY RAIOLOGIST. INILTIAL ASSESSMENT DONE
[2016-11-13 20:00] VITALS: BP 149/85
--- NOTE | 2016-11-13 20:00 | NUR ---
HOB 35 DEGREE ORAL CARE GIVEN DWITH VAP KIT NOT SOB NOTED REPOSITIONED Q2H
[2016-11-13] MEDS: AZTREONAM 1,000 MG in DEXTROSE 5% 50 ML IV SCH (21:25)
--- NOTE | 2016-11-13 22:15 | NUR ---
SPONGE BATH GIVEN LINEN CHANGED A BIG BOWEL MOVEMENT BROWNISH LIQUID STOOL AND A NEW NIFANTE CATH INSERTED PT OPEN EYES ON TELEMETRY ST G TUBE MEDIC WAS GIVEN ORDER
[2016-11-14] VITALS (7 sets, daily range): BP systolic 139–151; BP diastolic 77–92
--- NOTE | 2016-11-14 00:34 | NUR ---
PT ON INTERMITTENT SUCTION VIA G TUBE GREENISH LIQUID COMING OUT, ST ON TELMETRY, REPOSITIONED Q2H TRACH TO VENT REMAIN SAME SETTING NO;T SOB NOTED
[2016-11-14] MEDS: HYDRAGUARD CREAM TP SCH ×2 (01:00→12:02)
[2016-11-14] MEDS: ALBUTEROL SULFATE/IPRATROPIU 3 ML SOL IH SCH ×4 (01:09→20:46)
[2016-11-14] MEDS: NACL 0.45% 1,000 ML IV SCH ×3 (03:34→20:32)
--- NOTE | 2016-11-14 03:51 | NUR ---
HOB 30 DEGREE ORAL CARE GIVEN WITH VAP KIT SUCTION NECESSARY REPOSITIONED Q2H TRACH TO VENT SETTING REMAIN THE SAME NOT SOB NOTED A BIG BM LIQUID STOOL BROWNISH SPONGE BATH GIVEN LINEN CHANGING ON TELE ST
[2016-11-14] MEDS: DILTIAZEM 300 MG GT SCH ×4 (05:13→23:57)
--- NOTE | 2016-11-14 05:47 | NUR ---
CRITICAL RADIOLOGY REPORT WAS NOTIFY TO LIZ REYES,
--- NOTE | 2016-11-14 05:53 | NUR ---
ABD DISTENDED PERISTALSIS DIMINISH G TUBE ON INTERMITENT SUCTION, PT HAS ANOTHER BM AND IS CLEANED NOT SOB NOTED, TRACH TO CAESAR REMAIN SAME SETTING. RT IS HERE ASSISTING THE PT
--- NOTE | 2016-11-14 06:53 | NUR ---
PT REMAIN TRACH TO; VENT SETTING TV 400 FIO2 24% RR 12 PEEP 5 NOT SOB NOTED ABD DISTEND , ON GT ON INTERMITENT ESTEVES;CTION , ON TELEST PT WILL BE ENDORSED TO YANELIS FOR CONTINUITY OF CARE
--- NOTE | 2016-11-14 07:10 | NUR ---
REC'D PT ON CARESCAPE VENT SETTINGS AC12 VT 400 PEEP 5 FIO2 24% ALARMS ON AND FUNCTIONING PROPERLY, AMBU BAG AT [facility], VENT IS PLUGGED INTO RED OUTLET I\L TXS GIVEN WITH DUONEB 3ML AND PULMICORT 0.5MG WITH NO ADVERSE REACTION POST TX B\S ARE RHONCHI BILATERALLY, SXN PT SMALL AMT OF WHITE SECRETIONS, PT IS TRACH WITH PORTEX 7 AND SKIN INTEGRITY IS INTACT
--- NOTE | 2016-11-14 07:11 | NUR ---
PT AWAKE AND RESPONSIVE, TO VERBAL AND TACTILE STIMULI. NON VERBAL. NO SIGNS OF ACUTE DISTRESS. WITH TRACH TO VENT FIO2 AT 24% TV 400 PEEP 5 AC 12. KEPT HOB ELEVATED AT LEAST 30 DEGREES. SKIN IS WARM AND DRY. OFFLOAD TO PRESSURE AREAS, KEPT CLEAN AND DRY. PT WITH G TUBE CONNECTED ON INTERMITTENT SUCTION. OBSERVED DRAINAGE OF DARK GREENISH FLUID AT 550ML ON SUCTION CONTAINED. REPORTED BY FOUNTAIN MANAGER NURSE, PT ABLE TO HAVE 3 BM ON FOUNTAIN MANAGER. INFANTE CATHETER INTACT AND DRAINING 50CC OF BRIGHT CLEMENTE COLORED URINE. PROVIDED SAFETY AND COMFORT. FLACC 0. ALL NEEDS ANTICIPATED. CONTACT AND SAFETY PRECAUTIONS MAINTAINED, CALL LIGHT WITHIN REACH.
[2016-11-14] MEDS ORDERED: SIMETHICONE 40 MG/0.6 ML GT PRN (07:20)
[2016-11-14] MEDS: BUDESONIDE 0.5 MG/2 ML NEBU INH SCH ×2 (07:20→20:46)
--- NOTE | 2016-11-14 08:00 | NUR ---
OFFLOADED TO PRESSURE AREAS, FLACC 0. CONTINUE TO MONITOR.
[2016-11-14] MEDS: DOCUSATE 100 MG/10 ML UDC GT SCH (08:49)
[2016-11-14] MEDS: METOCLOPRAMIDE 10 MG/10 ML SYRP UDC GT SCH ×2 (08:49→20:29)
[2016-11-14] MEDS: LACTULOSE 20 GM/30 ML UDC GT SCH ×2 (08:49→20:29)
[2016-11-14] MEDS: AZTREONAM 1,000 MG in DEXTROSE 5% 50 ML IV SCH ×2 (08:49→20:30)
[2016-11-14] MEDS: SACCHAROMYCES 250 MG CAP GT SCH ×2 (08:50→20:29)
[2016-11-14] MEDS: NYSTATIN CRE 100 MU/GM 15 GM TUBE TP SCH ×3 (08:50→16:22)
--- NOTE | 2016-11-14 09:20 | NUR ---
vent check, no sxn required at this time pt is resting
--- NOTE | 2016-11-14 09:27 | NUR ---
CALLED [facility], NO BEDS CALLED [facility] AND SPOKE WITH NEHEMIAH. STILL EVALUATING PATIENT. CALLED [facility] AND SPOKE WITH FABIANA AND GAVE INFORMATION. I FAXED INQUIRY TO HIM AT [phone]
--- NOTE | 2016-11-14 10:00 | NUR ---
DUE MEDS GIVEN, TURNED AND REPOSITIONED. ORAL CARE RENDERED. CONTINUE TO MONITOR.
--- NOTE | 2016-11-14 11:21 | NUR ---
vent check, sxn pt moderate amt of white secretions, b\s rhonchi changed vent circuit and hme pt is getting cleaned
--- NOTE | 2016-11-14 12:00 | NUR ---
PT RESTING WELL, NO SIGNS OF ACUTE DISTRESS. TURNED AND REPOSITIONED. SUCTION PRN. CONTINUE TO MONITOR.
--- NOTE | 2016-11-14 13:22 | NUR ---
vent check, i\l tx given with duoneb 3ml with no adverse reaction post tx b\s are rhonchi and sxn pt small amt of white secretions, pt is resting with no signs of distress noted at this time
--- NOTE | 2016-11-14 14:00 | NUR ---
FLACC 0, NO SIGNS OF ACUTE DISTRESS. OFFLOAD TO PRESSURE AREAS. CONTINUE TO MONITOR.
--- NOTE | 2016-11-14 15:00 | NUR ---
WAS SEEN BY DR. ZAMUDIO, NO NEW ORDERS AT THIS TIME. CONTINUE TO MONITOR.
--- NOTE | 2016-11-14 15:40 | NUR ---
vent check, sxn pt small amt of white secretions pt is resting with no signs of distress noted at this time
--- NOTE | 2016-11-14 15:44 | NUR ---
CALLED GREGG AT [facility]. NO BEDS I SPOKE WITH VENUS FROM [facility]. SHE SAID THE ICU SERVICE IS CAPPED FOR TODAY, CANNOT ACCEPT THE PATIENT TODAY. I CALLED [facility] AND SPOKE WITH JOSE AND THEN FABIANA. I INFORMED THEM THAT DR. GRAFF IS OUT OF TOWN AND THEY NEED TO CALL THE ATTENDING, DR. HENDRICKSON. I ALSO FAXED TO FABIANA THE SOCIAL SERVICE NOTES (DISCHARG PLANNING, AND THE INFORMATION FROM [facility] . I ALSO GAVE FABIANA THE PHONE NUMBER TO THE FLOOR IN CASE THEY ACCEPT THE PATIENT AND GETS A BED.
--- NOTE | 2016-11-14 16:00 | NUR ---
KEPT CLEAN DRY, ORAL CARE RENDERED, NO SIGNS OF ANY PAIN AT THIS TIME. OFFLOAD TO PRESSURE AREAS. CONTINUE TO MONITOR.
[2016-11-14] MEDS: LEVOFLOXACIN 250 MG/D5 PREMIX 50 ML IV SCH (16:22)
--- NOTE | 2016-11-14 17:06 | NUR ---
VENT CHECK, NO SXN REQUIRED AT THIS TIME, PT IS RESTING
--- NOTE | 2016-11-14 18:00 | NUR ---
PT RESTING WELL IN BED, NO SIGNS OF ACUTE DISTRESS. TURNED AND REPOSITIONED, KEPT CLEAN AND DRY. FLACC 0. CONTINUE TO MONITOR.
--- NOTE | 2016-11-14 18:50 | NUR ---
PT AWAKE AND RESPONSIVE, NO SIGNS OF ACUTE DISTRESS. ENDORSED TO ONCOMING DIRECTOR MEDICARE SALES NURSE FOR CONTINUITY OF CARE.
--- NOTE | 2016-11-14 19:28 | NUR ---
RECEIVE REPORT FROM BENIGNO CARPIO, AT BEDSIDE. INITIAL ASSESSMENT AND BODY CHECK DONE. PATIENT IS APHASIC, EYES OPEN TO VOICE/LIGHT TOUCH, TRACHE TO VENT SUPPORT: AC MODE, TV 400, RR 12 WITH FIO2 24 % AND CONTRACTURE TO UPPER/ LOWER EXTREMITIES. PATIENT CURRENTLY LYING DOWN ON THE BED. NO S/S OF DISTRESS OR SOB NOTED. SKIN WARM/DRY TO TOUCH WITH GENERALIZED EDEMA +3; REDNESS NOTED TO G-TUBE SITE AND SACRAL-PERINEAL AREAS. HAS FIRM/ROUND/DISTEND ABDOMEN AND G-TUBE CONNECTED TO LOW INTERMITTENT SUCTION WITH DARK/GREEN RESIDUAL. DISCUSSED PLAN OF CARE, PAIN MANAGEMENT AND MEDICATION REGIMEN WITH PATIENT, BUT PATIENT UNABLE TO COMPREHENDED. PLACED PATIENT ON SAFETY/FALL/PRESSURE ULCER/ASPIRATION PRECAUTIONS AND CONTACT ISOLATION. WILL CONTINUE TO MONITOR AND REPOSITION Q 2 HOURS. CALL LIGHT LEFT WITHIN REACH.
--- NOTE | 2016-11-14 21:00 | NUR ---
PT RECEIVED FROM [facility] ON NOTED VENT SETTINGS. PT AWAKE, HAS A #7 PORTEX TR[address]. BS COARSE BILATERALLY, HHN TX GIVEN INLINE. PT LAVAGED AND SUCTIONED SMALL AMT THIN PALE YELLOW SECRETIONS. NO ADVERSE EFFECTS NOTED. VENT ALARMS ON AND AUDIBLE. VENT PLUGGED INTO RED ELECTRICAL OUTLET, AMBU BAG AT [facility].
--- NOTE | 2016-11-14 21:30 | NUR ---
CHECKED G-TUBE PLACEMENT AND OBTAINED 50 ML DARK/GREEN RESIDUAL. THEN, ADMINISTERED MEDICATIONS MD'S ORDERED WITH EDUCATION GIVEN. PATIENT TOLERATED WELL AND WILL TURN OFF THE SUCTIONING FOR 1 HOUR FOR MEDICATION ABSORPTION.
--- NOTE | 2016-11-14 22:27 | NUR ---
CXR DONE AT BEDSIDE. ASLO, ORAL CARE GIVEN WITH SUCTIONING TRACHE AND REPOSITION FOR COMFORT/PRESSURE RELIEF. PATIENT TOLERATED WELL. WILL CONTINUE TO MONITOR.
--- NOTE | 2016-11-14 23:58 | NUR ---
VENT CHECKED. PT AWAKE, SUCTIONED BY RN PRIOR TO VENT CHECK. NO DISTRESS NOTED.
[2016-11-15] VITALS (8 sets, daily range): BP systolic 121–146; BP diastolic 1–92
[2016-11-15] MEDS: HYDRAGUARD CREAM TP SCH ×2 (00:03→12:15)
--- NOTE | 2016-11-15 00:26 | NUR ---
STILL NOTED REDNESS ON SACRAL-PERINEAL AREAS WITH ENLARGE SCROTUM. SKIN TX AND ORAL CARE GIVEN WITH REPOSITION/OFFLOADED PRESSURE AREAS. PATIENT TOLERATED WELL. V/S REMAINED WNL AND NO S/S OF DISTRESS NOTED. WILL CONTINUE TO MONITOR.
[2016-11-15] MEDS: ALBUTEROL SULFATE/IPRATROPIU 3 ML SOL IH SCH ×4 (01:26→21:45)
--- NOTE | 2016-11-15 01:30 | NUR ---
VENT CHECKED. HME AND TRACH GAUZE CHANGED. HHN TX GIVEN INLINE, BREATH SOUNDS COARSE. PT LAVAGED AND SUCTIONED SMALL AMT THIN PALE YELLOW SECRETIONS. NO ADVERSE EFFECTS NOTED.
--- NOTE | 2016-11-15 02:17 | NUR ---
ORAL CARE GIVEN AND REPOSITION FOR COMFORT/PRESSURE RELIEF. PATIENT TOLERATED WELL.
--- NOTE | 2016-11-15 03:57 | NUR ---
VENT CHECKED. PT AWAKE, LAVAGED AND SUCTIONED SM AMT THIN PALE YELLOW SECRETIONS. NO ADVERSE EFFECTS NOTED.
[2016-11-15] MEDS: LACTULOSE 20 GM/30 ML UDC GT SCH ×2 (04:22→12:14)
--- NOTE | 2016-11-15 04:30 | NUR ---
PATIENT IS CLINICALLY STABLE WITH UNCHANGED V/S. NO S/S OF DISTRESS OR PAIN NOTED. AM CARE/ORAL CARE GIVEN AND REPOSITION. PATIENT TOLERATED WELL. WILL CONTINUE TO MONITOR.
[2016-11-15] MEDS: DILTIAZEM 300 MG GT SCH ×2 (05:08→12:14)
--- NOTE | 2016-11-15 05:10 | NUR ---
CHECKED G-TUBE AND STILL NOTED COFFEE GROUND/ DARK RED RESIDUAL. FLUSHED G-TUBE WITH 50 ML STERILE WATER AND ADMINISTERED AM MEDICATIONS. HELD SUCTION FOR 1 HOUR. V/S REMAINED WNL AND NO S/S OF DISTRESS NOTED. WILL CONTINUE TO MONITOR CLOSELY.
--- NOTE | 2016-11-15 05:40 | NUR ---
VENT CHECKED. PT AWAKE, NO DISTRESS NOTED. NO CHANGES MADE.
--- NOTE | 2016-11-15 07:12 | NUR ---
RECEIVED PT ON CARESCAPE ON A/C 12 VT400 PEEP5 FIO2 24 ALARMS ARE ON AND FUNCTIONAL BMV HOB PTS TRACH PORTEX 7 IS SECURE PT IN HF QUIET BS COARSE I\L LAVAGE AND SX SM YELLOW I\L HHN GIVEN WITH 3 MG DUONEB FOLLOWED BY I\ HHN WITH 0.5 MG PULMICORT VENT PLUGGED INTO RED OUTLET CONT. POX IN PLACE
--- NOTE | 2016-11-15 07:21 | NUR ---
ENDORSED PLAN OF CARE TO VONNIE Lazar RN, AT BEDSIDE. PATIENT REMAINED IN STABLE CONDITION AND NO APPARENT DISTRESS NOTED.
[2016-11-15] MEDS: BUDESONIDE 0.5 MG/2 ML NEBU INH SCH ×2 (07:22→21:45)
--- NOTE | 2016-11-15 07:22 | NUR ---
RECEIVED REPORT FROM BENIGNO FORTE . PT IS NON VERBAL, SPONTANEOUS EYE OPENING. PT ON TRACH TO VENT (AC, TV 400, RR 12, FIO2 24%), O2 SAT AT 99%. PT ON CONTACT PRECAUTIONS WITH SIGNS POSTED ON WALL. INFANTE CATHETER IN PLACE. IV TO RIGHT FA #20, PATENT AND INTACT. GENERALIZED EDEMA NOTED THROUGHOUT BODY, G-TUBE SITE REDNESS, AND SACRA-PERINEAL REDNESS NOTED. NO N/V OR PAIN, NOTED. ALL SAFETY PRECAUTIONS IN PLACE, SIDE RAILSX2, BED IN LOW POSITION, AND WILL PERFORM FREQUENT ROUNDS. WILL CONTINUE TO MONITOR.
[2016-11-15] MEDS: NACL 0.45% 1,000 ML IV SCH (07:48)
[2016-11-15] MEDS ORDERED: KCL 20 MEQ/WATER INJ PREMIX 200 ML IV ONE (08:15)
[2016-11-15] MEDS: DOCUSATE 100 MG/10 ML UDC GT SCH (09:04)
[2016-11-15] MEDS: METOCLOPRAMIDE 10 MG/10 ML SYRP UDC GT SCH (09:06)
[2016-11-15] MEDS: SACCHAROMYCES 250 MG CAP GT SCH ×2 (09:06→20:48)
[2016-11-15] MEDS: AZTREONAM 1,000 MG in DEXTROSE 5% 50 ML IV SCH ×2 (09:07→20:49)
[2016-11-15] MEDS: NYSTATIN CRE 100 MU/GM 15 GM TUBE TP SCH ×3 (09:07→16:11)
--- NOTE | 2016-11-15 09:15 | NUR ---
VENT CHECK BS COARSE I\L LAVAGE AND SX MOD YELLOW CHANGE INNER CANNULA PORTEX 7 TRAC TIE GAUZE WITHOUT INCIDENT
--- NOTE | 2016-11-15 09:19 | NUR ---
ML RESIDUAL STOPPED G-TUBE SUCTIONING. G-TUBE PLACEMENT VERIFIED. 20ML RESIDUAL NOTED. PT TOLERATED MEDS WELL. PT CLEANED AND REPOSITIONED. WILL CONTINUE SUCTIONING IN ONE HOUR. RESPIRATORY AT BEDSIDE TO ROS EASON DRESSING. WILL CONTINUE TO MONITOR.
--- NOTE | 2016-11-15 09:58 | NUR ---
CALLED [facility] AND SPOKE WITH GREGG, NO BEDS VENUS FROM [facility] CALLED. ASKED FOR ATTENDING, DR HENDRICKSON, PHONE NUMBER. I ALSO GAVE HER THE PHONE NUMBER FOR THE RESIDENT. SHE CALLED ME BACK AND SAID SHE SPOKE WITH HER UROLOGIST, DR. BAKER, AND HE SAID THIS PATIENT WOULD NEED TO BE REFERRED TO THE MIC[facility] SERVICE, AND THAT SERVICE IS CAPPED, NO BEDS. I SPOKE WITH FABIANA FROM [facility]. HE SAID HE NEEDED TO KNOW WHERE THE PATIENT WOULD GO FROM THEM WHEN DISCHARGED. I CALLED [facility] AND SPOKE WITH CAMILLA. SHE SAID SHE WOULD CALL ME BACK. SHE SAID THAT THIS PATIENT IS A CARE HOME PATIENT THERE. CAMILLA CALLED BACK AND SAID THEY WILL TAKE THE PATIENT BACK IF THEY HAVE A BED. I CALLED FABIANA AT [facility] AND INFORMED HIM.
[2016-11-15] MEDS ORDERED: POTASSIUM CHLORIDE 40 MEQ, LIDOCAINE 1% 25 MG in NACL 0.9% 250 ML IV SCH (10:00)
--- NOTE | 2016-11-15 10:17 | NUR ---
PT TOLERATED IV POTASSIUM WELL. POTASSIUM AT 2.6. CONTINUED WITH G-TUBE INTERMITTENT SUCTIONING. WILL CONTINUE TO MONITOR.
--- NOTE | 2016-11-15 10:36 | NUR ---
VENUS FROM [facility] SAID HER UROLOGIST SUGGESTED [facility]. I CALL [facility] AND SPOKE WITH STARR. FAXED INFORMATION TO THEM AT [phone]. PHONE [phone]
--- NOTE | 2016-11-15 11:18 | NUR ---
VENT CHECK BS COARSE I\ LAVAGE AND SX SM YELLOW
--- NOTE | 2016-11-15 11:40 | NUR ---
NOTIFIED DR JUNIOR REGARDING PT'S HGB AT 7.7. NO ORDERS RECEIVED AT THIS TIME. WILL CONTINUE TO MONITOR.
--- NOTE | 2016-11-15 12:06 | NUR ---
11/15/16 RD FOLLOW UP COMPLETED PLEASE REFER TO NUTRITION PROGRESS NOTE UNDER CARE ACTIVITY FOR ESTIMATED NUTRITION NEEDS. RD RECOMMENDATIONS: 1. CONTINUE NPO MEDICALLY APPROPRIATE PER MD 2. IF PT IS MEDICALLY APPROPRIATE TO BEING NUTRITION, CONSIDER NUTRITION SUPPORT BELOW: --NOVASOURCE RENAL AT STARTING AT 10 ML/HR, INCREASE 10 ML Q12 ML/HR TOLERATED TO GOAL RATE OF 35 ML/HR. THIS WILL PROVIDE 840 ML TOTAL VOLUME, 1680 KCAL, 76 GM PROTEIN TO MEET 100% OF PT ESTIMATED KCAL AND PROTEIN NEEDS. --NOTE PT PT WITH INCREASED KCAL AND PROTEIN NEEDS D/T RESPIRATORY FAILURE, VENT, SKIN INTEGRITY 3. IF TUBE FEEDING IS NOT MEDICALLY APPROPRIATE, CONSIDER TPN AND CONSULT RD PRN 4. RD WILL F/U 2-3 DAYS; HIGH RISK. [address] RD
--- NOTE | 2016-11-15 12:09 | NUR ---
DR ZAMUDIO IN TO SEE PT. AWARE OF PT'S LOW URINE OUTPUT, AND G-TUBE DRAINAGE. SUGGESTED REPEAT CT OF THE ABDOMEN AND PARENTAL NUTRITION. WILL NOTIFY RESIDENTS WHEN AVAILABLE. WILL CONTINUE TO MONITOR.
--- NOTE | 2016-11-15 12:22 | NUR ---
PT TOLERATED MEDS WELL. NO RESIDUAL NOTED. BP 136/86, HR 104. WILL CONTINUE TO MONITOR.
[2016-11-15] MEDS: POTASSIUM CHL 40 MEQ/ D5-1/2NS 1,000 ML IV SCH ×2 (12:35→14:14)
--- NOTE | 2016-11-15 12:45 | NUR ---
DR ZUNIGA IN TO SEE PT. WILL FOLLOW UP ON ORDERS. Addendum: 11/15/16 at 1437 by Elke Guzmán RN PER , PT TO BE GIVEN LAXATIVES. NO PROCEDURE TO BE DONE.
[2016-11-15] MEDS ORDERED: MAGNESIUM CITRATE 300 ML BTL PO SCH (12:47)
[2016-11-15] MEDS ORDERED: NEOSTIGMINE 1:1000 10 MG/10 ML VIAL IV SCH (12:53)
[2016-11-15] MEDS: SENNA 8.6 MG TAB PO SCH ×2 (13:00→16:09)
--- NOTE | 2016-11-15 13:00 | NUR ---
STOPPED G-TUBE SUCTION WILL RESUME AT [address] ZUNIGA ORDERS.
--- NOTE | 2016-11-15 13:09 | NUR ---
VENT CHECK BS COARSE I\L LAVAGE AND SX SM YELLOW I\L HHN GIVEN WITH 3 MG DUONEB
[2016-11-15] MEDS ORDERED: SODIUM PHOSPHATE 118 ML ENEM RC PRN (13:20)
[2016-11-15] MEDS ORDERED: SODIUM PHOSPHATE 118 ML ENEM RC SCH ×2 (13:23→21:00)
--- NOTE | 2016-11-15 14:14 | NUR ---
PT TOLERATED MEDS WELL. WILL CONTINUE TO MONITOR.
--- NOTE | 2016-11-15 15:15 | NUR ---
PT RESTING WITH NO DISTRESS NOTED AT THIS TIME. RESPIRATORY AT BEDSIDE.
--- NOTE | 2016-11-15 15:21 | NUR ---
VENT CHECK BS COARSE SX SM YELLOW
--- NOTE | 2016-11-15 15:46 | NUR ---
CALLED FABIANA AT [facility]. HE SAID HE WOULD CALL ME BACK. I CALLED [facility]. WAS TOLD THAT THE CM IS LUCIO, AND SHE WOULD CALL ME BACK.
[2016-11-15] MEDS: LEVOFLOXACIN 250 MG/D5 PREMIX 50 ML IV SCH (16:08)
--- NOTE | 2016-11-15 16:17 | NUR ---
I CALLED [facility] AND SPOKE WITH ROSARIO GARNETT. SHE SAID SHE WOULD SPEAK WITH THE GRAVITY METER OPERATOR AND CALL ME BACK.
--- NOTE | 2016-11-15 16:26 | NUR ---
PT TOLERATED MEDS WELL. HELD SUCTION AT THIS TIME. WILL CONTINUE TO MONITOR.
--- NOTE | 2016-11-15 16:41 | NUR ---
SPOKE WITH FABIANA AT [facility]. HE IS STILL TRYING TO GET TO SPEAK WITH HIS UROLOGIST. I GAVE HIM THE PHONE NUMBER TO THE FLOOR TO CALL IF THEY CAN GET A BED FOR THIS PATIENT.
--- NOTE | 2016-11-15 16:50 | NUR ---
TALKED TO DR SANDI MD MADE AWARE OF DR ZUNIGA PLAN OF CARE. DR ZUNIGA SUGGESTED TPN. MADE AWARE.
--- NOTE | 2016-11-15 17:11 | NUR ---
DR PUENTES ARRIVED INSTRUCTED RT KAYA WEISS AND KELLI WAGNER TO DEFLATE ET CUFF AND TRY TO ADVANCE TUBE IN ET TUBE COMPLETELY DISLODGED REMOVED ET TUBE BMV USED PER DR PUENTES SPO2 100 PT BREATHES ON HER OWN TAHIRA RN CALLED DR SOMMER WHO SPOKE WITH DR PUENTES PT PLACED ON 3L N/C SPO2 97- 100 BIPAP PRN PLACED AT BEDSIDE Addendum: 11/15/16 at 1759 by Kaya Weiss RT WRONG PT
--- NOTE | 2016-11-15 17:15 | NUR ---
RESUMED LOW INTERMITTENT SUCTION FOR TWO HOURS ORDERED BY DR ZUNIGA.
--- NOTE | 2016-11-15 18:12 | NUR ---
DR JUNIOR IN TO SEE PT. HELD IV FLUIDS UNTIL CBC TO BE RE-DRAWN IN FOUR HOURS. WILL FOLLOW UP ON ORDERS.
--- NOTE | 2016-11-15 19:14 | NUR ---
ENDORSED CARE TO BENIGNO FORTE. PT IN STABLE CONDITION.
--- NOTE | 2016-11-15 19:30 | NUR ---
RECEIVE REPORT FROM VONNIE Lazar RN, AT BEDSIDE. INITIAL ASSESSMENT AND BODY CHECK DONE. PATIENT IS APHASIC, RESPONSIVE TO BOTH VERBAL AND TACTILE STIMULI, TRACHE TO VENT SUPPORT: AC MODE, TV 400, RR 12 WITH FIO2 24 % AND CONTRACTURE TO UPPER/ LOWER EXTREMITIES. PATIENT CURRENTLY LYING DOWN ON THE BED WITH BOTH EYES OPEN. NO S/S OF DISTRESS OR SOB NOTED. V/S REMAINED WNL AND AFEBRILE. SKIN WARM/DRY TO TOUCH WITH GENERALIZED EDEMA +3; REDNESS STILL NOTED TO G-TUBE SITE AND SACRAL- PERINEAL AREAS; ENLARGE SCROTUM. HAS FIRM/ROUND/DISTEND ABDOMEN AND G-TUBE. DISCUSSED PLAN OF CARE, PAIN MANAGEMENT AND MEDICATION REGIMEN WITH PATIENT, BUT PATIENT UNABLE TO COMPREHENDED. PLACED PATIENT ON SAFETY/FALL/PRESSURE ULCER/ASPIRATION PRECAUTIONS AND CONTACT ISOLATION. WILL CONTINUE TO MONITOR AND REPOSITION Q 2 HOURS. CALL LIGHT LEFT WITHIN REACH.
--- NOTE | 2016-11-15 21:00 | NUR ---
VERIFIED G-TUBE PLACEMENT AND OBTAINED ABOUT 100 ML COFFEE GROUND RESIDUAL FORM G-TUBE AND LEAKAGE AROUND. THEN, ADMINISTERED ABX, FLEET ENEMA AND FLORASTOR MD'S ORDERED. NOTED ONLY YELLOW WATERY FLUID CAME OUT AFTER GAVE ENEMA. PM CARE/MANDO-CARE GIVEN, CHANGED LINENS AND REPOSITION. PATIENT TOLERATED WELL. WILL CONTINUE TO MONITOR AND REPOSITION MORE OFTEN.
--- NOTE | 2016-11-15 22:19 | NUR ---
ORAL CARE GIVEN AND CHANGED G-TUBE DRESSING. PATIENT TOLERATED WELL.
[2016-11-15] MEDS ORDERED: NACL 0.45% 1,000 ML IV SCH (23:00)
--- NOTE | 2016-11-15 23:50 | NUR ---
MADE AWARE OF THE NEW LAB RESULTS, CBC AND BMP. HGB AND POTASSIUM LEVELS WERE TRENDING UP: HGB 8.4, K 3.2. PATIENT CURRENTLY ON IVF D5 1/2 NS + 40 MEQ KCL AT 80 ML/HR. NOTIFIED CHARGE NURSE AND WILL CONTINUE TO MONITOR.
[2016-11-16] VITALS: BP 123/76
[2016-11-16 00:10] VITALS: BP 123/76
--- NOTE | 2016-11-16 00:10 | NUR ---
V/S REMAINED WNL AND NO APPARENT DISTRESS NOTED. FLUSHED G-TUBE WITH 50 ML STERILE WATER AND NOTED LIGHT BROWN RESIDUAL IN RETURN. DRAINING G-TUBE TO GRAVITY. REPOSITION FOR COMFORT/PRESSURE RELIEF AND PATIENT TOLERATED WELL. WILL CONTINUE TO MONITOR.
[2016-11-16] MEDS: HYDRAGUARD CREAM TP SCH ×2 (00:38→12:18)
--- NOTE | 2016-11-16 02:00 | NUR ---
REPOSITION FOR COMFORT/PRESSURE RELIEF WITH ORAL CARE GIVEN. PATIENT TOLERATED WELL AND NO CHANGE IN CONDITION NOTED.
[2016-11-16] MEDS: ALBUTEROL SULFATE/IPRATROPIU 3 ML SOL IH SCH ×3 (02:04→13:41)
[2016-11-16 04:00] VITALS: BP 121/74
--- NOTE | 2016-11-16 04:10 | NUR ---
FLUSHED G-TUBE WITH 30 ML STERILE WATER AND OBTAINED LIGHT BROWN WITH PALE GREEN RESIDUAL IN RETURN. NO ACTIVE BLEEDING NOTED. V/S REMAINED WNL. DRAINING G-TUBE TO GRAVITY AND ELEVATED HOB.
--- NOTE | 2016-11-16 04:47 | NUR ---
AM CARE GIVEN WITH LINENS/GOWN CHANGED AND REPOSITION. PATIENT TOLERATED WELL. NO BOWEL MOVEMENT NOR LEAKAGE FROM G-TUBE NOTED. WILL CONTINUE TO MONITOR.
--- NOTE | 2016-11-16 07:15 | NUR ---
ENDORSED PLAN OF CARE TO VONNIE Lazar RN, AT BEDSIDE. PATIENT REMAINED IN STABLE CONDITION WITHOUT APPARENT DISTRESS NOTED.
--- NOTE | 2016-11-16 07:16 | NUR ---
RECEIVED REPORT FROM BENIGNO FORTE. PT IS NON-VERBAL. PT ON TRACHE TO VENT. AC TV400 RR12 FIO2 24%, O2 SAT AT 99%. NO DISTRESS NOTED. PT ON CONTACT PRECAUTIONS WITH SIGNS POSTED ON WALL, PRECAUTIONS IN PLACE. INFANTE CATHETER IN PLACE. IV TO RIGHT FA #20, PATENT AND INTACT. NO N/V OR PAIN NOTED. ALL SAFETY PRECAUTIONS IN PLACE, SIDE RAILSX2, BED IN LOW POSITION, AND WILL PERFORM FREQUENT ROUNDS. WILL CONTINUE TO MONITOR. Addendum: 11/16/16 at 0741 by Elke Gzumán RN REDNESS TO SACRAL-PERINEAL AREA, G-TUBE SITE REDNESS, AND GENERALIZED EDEMA NOTED.
--- NOTE | 2016-11-16 07:20 | NUR ---
DR HENDRICKSON IN TO SEE PT. OK FOR PT G-TUBE TO BE SUCTIONED BY GRAVITY BY DR HENDRICKSON AND RESIDENTS. WILL FOLLOW UP ON ORDERS.
[2016-11-16 07:45] VITALS: BP 136/79
--- NOTE | 2016-11-16 08:00 | NUR ---
RESPIRATORY THERAPIST IN TO SEE PT.
[2016-11-16] MEDS: BUDESONIDE 0.5 MG/2 ML NEBU INH SCH (08:02)
[2016-11-16] MEDS: AZTREONAM 1,000 MG in DEXTROSE 5% 50 ML IV SCH (08:23)
[2016-11-16] MEDS: SACCHAROMYCES 250 MG CAP GT SCH (08:26)
[2016-11-16] MEDS: SENNA 8.6 MG TAB PO SCH ×2 (08:26→12:18)
[2016-11-16] MEDS: NYSTATIN CRE 100 MU/GM 15 GM TUBE TP SCH ×2 (08:27→12:17)
[2016-11-16] MEDS ORDERED: BISACODYL 10 MG SUPP RC SCH (09:00)
--- NOTE | 2016-11-16 09:01 | NUR ---
PT TOLERATED MEDS WELL. CHECKED PT G-TUBE PLACEMENT VERIFIED. 5ML RESIDUAL NOTED. ORAL CARE PROVIDED. AM CARE CARE PROVIDED. CHANGED DRESSING TO G-TUBE SITE. WILL CONTINUE TO MONITOR.
--- NOTE | 2016-11-16 10:00 | NUR ---
TALKED TO DR MICHEL MD AWARE OF PT'S LOW HEMOGLOBIN AT 7.2. NO ORDERS RECEIVED. STATED HGB IS LOW BECAUSE OF FLUIDS.
--- NOTE | 2016-11-16 10:00 | NUR ---
RESPIRATORY IN TO SEE PT.
--- NOTE | 2016-11-16 10:13 | NUR ---
AWAKE STABLE NO DISTRESS NOTED BREATH SOUNDS COARSE RHONCHI BILATERAL GOOD CHEST RISE DEEP TRACHEAL SUCTION FOR SMALL THICK YELLOW SECRETIONS AIRWAY PATENT
[2016-11-16] MEDS ORDERED: DEXTROSE 5% 1,000 ML IV SCH (10:15)
--- NOTE | 2016-11-16 10:15 | NUR ---
SENT CONSENTS VIA FAX TO [facility] POWER OF SALES SERVICE ASSISTANT. DIALYSIS CATHETER, PICC LINE INSERTION, AND HEMODIALYSIS CONSENT SENT TO BE SIGNED BY [facility]. RECEIVED FAX CONFIRMATION OF SENT FORMS. EIGHT PAGES SENT AND EIGHT PAGES RECEIVED.
--- NOTE | 2016-11-16 10:20 | NUR ---
[employer]opt[employer] R860 S/N 1354 VENTILATOR PRESENTING WITH PATIENT LEAK TRACH CUFF PRESSURE CHECKED FOR MOV ALL AIRWAY FITTINGS CHECKED EQUIPMENT CHANGED: VENTILATOR CIRCUIT, PORTEX SUCTION CATHTETER, DIC, HME AND NEB MARISOL Julio CHEN RCP AND [place] DUARTE RCP AT BEDSIDE UNABLE TO DETERMINE SOURCE OF PATIENT LEAK First[employer] VENTILATOR CHANGED S/N 1349 AFTER 5 MINS NO PATIENT LEAK
--- NOTE | 2016-11-16 10:54 | NUR ---
THIS MORNING, CALLED [facility] AND SPOKE TO GALDINO NO BEDS CALLED [facility]. NO BEDS YET CALLED [facility] AND SPOKE WITH ETHAN, NO ACCEPTING PHYSICIAN YET. CALLED [facility] AND SPOKE WITH JOSH. HE SAID HE WOULD REVIEW THE INFORMATION, BUT HE SAID NO BEDS AT PRESENT. CALLED [facility] AND WAS ABLE TO SPEAK WITH ROSARIO GARNETT. SHE SAID THEY WOULD NOT BE ABLE TO TAKE THE PATIENT, THEY DON'T HAVE THE EQUIPMENT SPECIFIED NEEDED. CALLED [facility] AND SPOKE WITH FAIZA, ALEXI. I FAXED INFORMATION TO HER AT [phone].
--- NOTE | 2016-11-16 11:12 | NUR ---
AWAKE PATIENT PRESENTING WITH INCREASED SOB BREATH SOUNDS [id number] BILATERAL AIRWAY PATENT HHN PRN THERAPY GIVEN AT THIS TIME
--- NOTE | 2016-11-16 11:16 | NUR ---
CALLED ELSY [facility]WR[facility] PSYCH SALES SPECIALIST FOR THE [facility] TO INFORM HER THAT WE ARE TRYING TO GET THIS PATIENT TO HIGHER LEVEL OF CARE. I TOLD HER THAT [facility] MIGHT BE ABLE TAKE THIS PATIENT. SHE SAID SHE WOULD WORK WITH [facility] IF HE IS TRANSFERED THERE, TO GET THIS PATIENT BACK TO THIS AREA WHEN DISCHARGED. PHONE ELSY [phone].
[2016-11-16 11:46] VITALS: BP 132/69
[2016-11-16] MEDS ORDERED: TPN PER PHARMACY MC PRN (11:50)
[2016-11-16] MEDS: POTASSIUM CHL 40 MEQ/ D5-1/2NS 1,000 ML IV SCH (12:15)
--- NOTE | 2016-11-16 12:24 | NUR ---
PT TOLERATED MEDS WELL. NO RESIDUAL NOTED. WILL CONTINUE TO MONITOR.
--- NOTE | 2016-11-16 12:27 | NUR ---
RECEIVED A CALL FROM ALEXI AT [facility] ADMITTING. SHE SAID THAT DR Bekah MCLAUGHLIN SAW THE INQUIRY AND IS ACCEPTING THE PATIENT. THE PATIENT WILL GO TO [facility] ROOM 5026. PHONE FOR REPORT IS [phone]. CHARGE NURSE IS STARR. PHONE TO [facility] IS [phone]. PHONE TO DECEMBER IN ADMITTING [phone]. I INFORMED DR. PEARSON AND GAVE HIM THE PHONE NUMBER TO DR. Mily MCLAUGHLIN, VONNIE RN AWARE. . Addendum: 11/16/16 at 1406 by Liset Rosado CM PHONE NUMBER TO ALEXI (December) [phone].
--- NOTE | 2016-11-16 12:49 | NUR ---
SPOKE WITH [facility] AND SHE SAID THE PATIENT'S ROOM IS CHANGED TO [facility]. VONNIE PELAEZ AWARE.
--- NOTE | 2016-11-16 13:32 | NUR ---
CALLED GERRY AT [facility] AND TOLD HER THE PATIENT WAS GOING TO [facility]. I GAVE HER THE PHONE NUMBER TO [facility] [phone] . CALLED [facility] AND CANCELED TRANSFER TO THEM. SPOKE WITH LESLYE CALLED [facility] AND SPOKE WITH JOSE AND CANCELED TRANSFER TO THEM. JOSE SAID THEY STILL DIDN'T HAVE AN ACCEPTING PHYSICIAN' SPOKE WITH LUCIO AT [facility] AND INFORMED HER PATIENT WILL BE GOING TO ANOTHER HOSPITAL.
--- NOTE | 2016-11-16 13:38 | NUR ---
SPOKE WITH KEATON FROM [facility], PT WILL BE PICKED UP (ETA) AT 9PM TONIGHT BY [facility] (WITH NURSE AND RT). PT IS GOING TO [facility] IN [place], [place]- ROOM 5031. ACCEPTING DR: Bekah MCLAUGHLIN.
--- NOTE | 2016-11-16 13:42 | NUR ---
AWAKE STABLE NO APPARENT RESPIRATORY DISTRESS NOTED BREATH SOUNDS EXP RALES BILATERAL WITH GOOD CHEST RISE DEEP TRACHEAL SUCTION FOR SMALL THICK YELLOW SECRETIONS AIRWAY PATENT
[2016-11-16] MEDS ORDERED: ATIVAN2 MG/M1 IVP (13:58)
[2016-11-16] MEDS ORDERED: PULMICORT0.5 MG/2 M INH (13:58)
[2016-11-16] MEDS ORDERED: Levofloxacin IV (13:58)
[2016-11-16] MEDS ORDERED: BISAC-EVAC10 M1 RC (13:58)
[2016-11-16] MEDS ORDERED: TYLENOL160 MG/5 M GT (13:58)
[2016-11-16] MEDS ORDERED: FLORASTOR 33 MG1 CAP GT (13:58)
[2016-11-16] MEDS ORDERED: AZTREONAM IV (13:58)
[2016-11-16] MEDS ORDERED: Cream Base TP (13:58)
[2016-11-16] MEDS ORDERED: IPRATROPIUM BROM3 M1 IH ×2 (13:58)
[2016-11-16] MEDS ORDERED: SENNA CONCENTR8.6 MG PO (13:58)
[2016-11-16] MEDS ORDERED: [UNRECOGNIZED DRUG - CODE] TP (13:58)
--- NOTE | 2016-11-16 14:00 | NUR ---
PT TO BE TRANSFERRED TO [facility], WILL FOLLOW UP.
[2016-11-16 14:05] VITALS: BP 132/69
--- NOTE | 2016-11-16 14:10 | NUR ---
PT G-TUBE LEAKING DARK BROWN FLUID. DR JUNIOR MADE AWARE. DR JUNIOR NOTIFIED DR PEARSON. OK PER MD'S TO TRANSFER PT. DR JUNIOR WENT TO PT'S ROOM AND ASSESSED PT.
--- NOTE | 2016-11-16 15:05 | NUR ---
REPORT GIVEN TO [facility] TOWER CLIMBER AC 12 VT 400 PEEP 5 FIO2 24% AIRWAY PORTEX 7 DCT BREATH SOUNDS EXP RHONCHI BILATERAL SMALL THICK YELLOW SECRETIONS [facility] RN REQUESTING AIRWAY OBTURATOR FOR PATIENT TRANSPORT TO [facility] PORTEX 7 AIRWAY KIT REMOVED FROM ICU PXYSIS PATIENT REMOVED FROM [place] R860 VENTILATOR PATIENT PLACED ON [facility] TRANSPORT VENTILATOR BY TOWER CLIMBER PATIENT TOLERATED PROCEDURE WELL WITHOUT INCIDENT
--- NOTE | 2016-11-16 15:07 | NUR ---
PT HAS BEEN DISCHARGED TO [facility]. REPORT GIVEN TO ROOSEVELT RN. 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 IV TO RIGHT FA #20, WRAPPED. INFANTE CATHETER AND G-TUBE IN PLACE. WRISTBANDS REMOVED. PT TO BE TRANSFERRED TO ROOM 5031 IN [place]. PT TRANSFERRED VIA [facility] WITH AMBULANCE RN AT BEDSIDE.
[2016-11-17] MEDS ORDERED: SENNA 8.6 MG TAB PO SCH (09:00)
== END 2016-11-16 15:07 | disposition short-term general hospital (02) | DRG 870 ==
LOC: MED 14:51 → MTU 18:28
PROVIDERS: ADMIT Family Medicine; ATTEND Family Medicine
PROC: 5A1955Z Respiratory Ventilation, Greater than 96 Consecutive Hours (ICD-10-PCS; principal; 2016-11-09)
DX: A41.9 Sepsis, unspecified organism (principal); J69.0 Pneumonitis due to inhalation of food and vomit; N17.0 Acute kidney failure with tubular necrosis; E43 Unspecified severe protein-calorie malnutrition; J96.21 Acute and chronic respiratory failure with hypoxia; N39.0 Urinary tract infection, site not specified; R18.8 Other ascites; E87.0 Hyperosmolality and hypernatremia; Z99.11 Dependence on respirator [ventilator] status; N13.2 Hydronephrosis with renal and ureteral calculous obstruction; N21.0 Calculus in bladder; D69.6 Thrombocytopenia, unspecified; L25.9 Unspecified contact dermatitis, unspecified cause; G80.9 Cerebral palsy, unspecified; F79 Unspecified intellectual disabilities; G40.909 Epilepsy, unspecified, not intractable, without status epilepticus; B96.5 Pseudomonas (aeruginosa) (mallei) (pseudomallei) as the cause of diseases classified elsewhere; D64.9 Anemia, unspecified; N18.9 Chronic kidney disease, unspecified; I12.9 Hypertensive chronic kidney disease with stage 1 through stage 4 chronic kidney disease, or unspecified chronic kidney disease; F41.9 Anxiety disorder, unspecified; N32.89 Other specified disorders of bladder; E02 Subclinical iodine-deficiency hypothyroidism; E87.6 Hypokalemia; E87.8 Other disorders of electrolyte and fluid balance, not elsewhere classified; E83.51 Hypocalcemia; E83.42 Hypomagnesemia; E83.41 Hypermagnesemia; K57.90 Diverticulosis of intestine, part unspecified, without perforation or abscess without bleeding; L30.4 Erythema intertrigo; R31.9 Hematuria, unspecified; Z68.24 Body mass index [BMI] 24.0-24.9, adult; Z93.1 Gastrostomy status; Z93.0 Tracheostomy status; Z79.899 Other long term (current) drug therapy; Z86.74 Personal history of sudden cardiac arrest